=== PATIENT | female | born 1945 | race Caucasian/White ===

== ENCOUNTER 2023-01-07 13:34 | Outpatient (RCR) | payer MEDICARE, OTHER, SELFPAY | END 2023-07-06 23:59 | disposition home or self-care (01) | LOC: CCIC 13:34 | PROVIDERS: PCP Family Medicine; Visit Provider Internal Medicine Hematology & Oncology | DX: C34.92 Malignant neoplasm of unspecified part of left bronchus or lung (principal); C79.31 Secondary malignant neoplasm of brain; Z87.891 Personal history of nicotine dependence; F20.9 Schizophrenia, unspecified | CPT/HCPCS: 99202; 99205 ==